=== PATIENT | male | born 1975 | race Two or more races ===

== ENCOUNTER → 2024-05-23 | Outpatient (CLI) | payer OTHER, SELFPAY ==
--- NOTE | 2024-05-23 13:27 | XR_ITS ---
Examination: Foot bilateral, 6 views Technique: AP, oblique, lateral views each foot total 6 views Date and time of exam: May 23, 2024 1359 hours INDICATIONS: Bilateral foot pain 6 years FINDINGS: Mild osteopenia Bilateral moderate narrowing first metatarsophalangeal joints No fracture or dislocation Status post left ankle fusion IMPRESSION: Bilateral moderate narrowing first metatarsophalangeal joint
--- NOTE | 2024-05-23 13:27 | XR_ITS ---
Examination: Bilateral ankles 6 views TECHNIQUE: AP oblique lateral each ankle total 6 views Exam date and time: May 23, 2024 1403 hours INDICATIONS: Bilateral ankle pain 6 years. FINDINGS: Mild osteoarthritis right tibiotalar joint Moderate osteoarthritis left tibiotalar joint Status post left ankle fusion, talocalcaneal joint, satisfactory position orthopedic hardware No acute fracture Major left plantar bony calcaneal spur IMPRESSION: Bilateral osteoarthritis tibiotalar joints
== END | disposition home or self-care (01) ==
LOC: CDIM 13:08
PROVIDERS: Referring Provider Orthopaedic Surgery; Visit Provider Orthopaedic Surgery
DX: M19.072 Primary osteoarthritis, left ankle and foot (principal); M19.071 Primary osteoarthritis, right ankle and foot; M25.872 Other specified joint disorders, left ankle and foot; M25.871 Other specified joint disorders, right ankle and foot
CPT/HCPCS: 73610; 73630

== ENCOUNTER → 2024-09-07 | Outpatient (CLI) | payer OTHER, SELFPAY ==
--- NOTE | 2024-09-07 | XR_ITS ---
Examination: Ankle Bilateral, 6 views Technique: AP oblique lateral each ankle total 6 views Exam date and time: September 07, 2024 1145 hours INDICATIONS: Patient fell off a roof 7 years ago with injury to both ankles, bilateral ankle pain Findings: Mild bilateral osteoarthritis tibiotalar joints Status post talocalcaneal fusion left ankle No acute fracture No cortical bone destruction IMPRESSION: Mild bilateral osteoarthritis tibiotalar joints
== END | disposition home or self-care (01) ==
LOC: CDIM 11:17
PROVIDERS: Referring Provider Orthopaedic Surgery; Visit Provider Orthopaedic Surgery
DX: M19.072 Primary osteoarthritis, left ankle and foot (principal); M19.071 Primary osteoarthritis, right ankle and foot
CPT/HCPCS: 73610

== ENCOUNTER → 2024-09-21 | Outpatient (CLI) | payer OTHER, SELFPAY ==
--- NOTE | 2024-09-21 16:58 | XR_ITS ---
Examination: Ankle Bilateral, 6 views Technique: AP oblique lateral each ankle total 6 views INDICATIONS: Patient fell 2018 with injury to both ankles, bilateral ankle pain, ankle surgery on the right 2018 Date and time of exam: September 21, 2024 1705 hours Findings: Left ankle talar calcaneal fusion No acute fracture involving either ankle Moderate osteoarthritis left tibiotalar joint Mild to moderate osteoarthritis right tibiotalar joint No avascular necrosis IMPRESSION: Moderate osteoarthritis left tibiotalar joint Mild to moderate osteoarthritis right tibiotalar joint
== END | disposition home or self-care (01) ==
LOC: CDIM 16:53
PROVIDERS: PCP Orthopaedic Surgery; Referring Provider Orthopaedic Surgery; Visit Provider Orthopaedic Surgery
DX: M17.0 Bilateral primary osteoarthritis of knee (principal); S92.002S Unspecified fracture of left calcaneus, sequela; S93.491S Sprain of other ligament of right ankle, sequela; W19.XXXS Unspecified fall, sequela
CPT/HCPCS: 73610